=== PATIENT | female | born 1945 | race African-American/Black ===

== ENCOUNTER 2017-01-20 13:00 | Emergency (ER) | payer MEDICARE ==
[2017-01-20 14:00] VITALS: BP 139/81
--- NOTE | 2017-01-20 15:04 | UC ---
General HPI - HPI Summary HPI Summary: She has had intermittent leg swelling kobe in the past. Her pcp has prescribed her a diuretic which she takes on occassion. her last dose was Wednesday night. this time it did not work very well. She had labs drawn this last week that she believes were normal. She denies prior kidney, lung, heart or liver disease. She denies PND, orthopnea, cough, sob, chest pain, jaw pain, shoulder pain. - History of Current Complaint Chief Complaint: UCLowerExtremity Stated Complaint: SWOLLEN LEGS Time Seen by Provider: 01/20/17 14:49 Hx Obtained From: Patient Hx Last Menstrual Period: n/a Onset/Duration: Gradual Onset, Lasting Days Timing: Constant Onset Severity: Moderate Current Severity: Severe Character: she denies any pain. Associated Signs & Symptoms: Positive: Edema - Allergy/Home Medications Allergies/Adverse Reactions: Allergies Allergy/AdvReac Type Severity Reaction Status Date / Time No Known Allergies Allergy Verified 01/20/17 14:00 Home Medications: Home Medications Furosemide TAB* [Lasix TAB*] 40 mg PO DAILY 01/20/17 [History Confirmed 01/20/17 ] Meclizine TAB* [Antivert 12.5 TAB*] 12.5 mg PO TID 01/20/17 [History Confirmed 01/20/17] Nabumetone TAB* [Relafen TAB*] 500 mg PO BID 01/20/17 [History Confirmed ] PMH/Surg Hx/FS Hx/Imm Hx Previously Healthy: No - intermittent swelling. denies dm. - Surgical History Surgical History: None - Family History Known Family History: Positive: Other - no known swelling family history. - Social History Alcohol Use: Rare Substance Use Type: None Smoking Status (MU): Never Smoked Tobacco Review of Systems Respiratory: Negative Cardiovascular: Negative Musculoskeletal: Edema All Other Systems Reviewed And Are Negative: Yes Physical Exam Triage Information Reviewed: Yes Appearance: Well-Appearing, Obese Vital Signs: Initial Vital Signs Temp 98 F 01/20/17 13:55 Pulse 83 01/20/17 13:55 Resp 18 01/20/17 13:55 BP 139/81 01/20/17 13:55 Pulse Ox 98 01/20/17 13:55 Vital Signs Reviewed: Yes Eye Exam: Normal Eyes: Positive: Conjunctiva Clear ENT: Positive: Normal ENT inspection. Negative: Trismus Neck exam: Normal Neck: Positive: Supple, Nontender, No Lymphadenopathy Respiratory Exam: Normal Respiratory: Positive: Normal breath sounds, No respiratory distress, No accessory muscle use. Negative: Crackles Cardiovascular: Positive: RRR, Other: - no murmur or gallop. . Abdomen Description: Positive: Nontender, Soft Musculoskeletal: Positive: Edema @ - kobe edema mild pitting. not hot or red. non tender. Neurological: Positive: Alert, Muscle Tone Normal Psychological: Positive: Age Appropriate Behavior Skin Exam: Normal Skin: Negative: rashes Course/Dx - Course Course Of Treatment: she is a reliable pt with chronic intermittent swelling with regular f/u with pcp and labs last week. we discussed the worrisome etiologies that may be the culprit but clinically there is no evidence of heart , lung, liver, kidney involvement. She nonetheless agrees to f/u with pcp to evaluate these etiologies further. - Differential Dx - Multi-Symptom Provider Diagnoses: kobe leg edema. Discharge - Discharge Plan Condition: Good Disposition: HOME Patient Education Materials: Leg Edema (ED) Referrals: Ángel Tovar MD [Primary Care Provider] - 3 Days Additional Instructions: Please take the "water pill" for three days in a row. Also please start to use the compression stockings. Follow up with Dr Tovar to discuss make sure that this is not your heart, lungs, liver or kidneys that may be causing this swelling.
== END 2017-01-20 15:11 | disposition home or self-care (01) ==
LOC: UCCORT 13:00
DX: R60.0 Localized edema (principal)
CPT/HCPCS: 99202; G0463

== ENCOUNTER 2017-09-17 17:10 | Emergency (ER) | payer MEDICARE, OTHER ==
[2017-09-17 18:01] VITALS: BP 104/63
--- NOTE | 2017-09-17 19:30 | RAD ---
INDICATION: Left ankle pain after hearing a "pop" COMPARISON: None. TECHNIQUE: 3 views of the left ankle were obtained. FINDINGS: Involving the medial left lower leg greater than lateral, there is the appearance of subcutaneous induration. There is medial greater than lateral soft tissue thickening surrounding the ankle. There is enthesophyte formation at the origin of the plantar fascia and insertion point of the Achilles tendon on the calcaneal tubercle. The well corticated bones exhibit normal alignment. Joint spaces appear maintained. No fracture is seen. IMPRESSION: 1. RADIOGRAPHIC APPEARANCE IS CONSISTENT WITH SUBCUTANEOUS INDURATION AND THICKENING OR SEVERELY AFFECTING THE MEDIAL LEFT LOWER LEG AND ANKLE THAN LATERAL. PLEASE CORRELATE TO SUPERFICIAL VENOUS INSUFFICIENCY. 2. NO RADIOGRAPHICALLY APPARENT ACUTE FRACTURE OR DISLOCATION. If the patient's symptoms persist, follow-up imaging is recommended.
--- NOTE | 2017-09-17 19:46 | UC ---
Lower Extremity/Ankle HPI - HPI Summary HPI Summary: 72yo BF c/o left ankle pain and difficulty bearing weight after she heard it pop this afternoon, normally walks with a cane and can bear weight still, just hurts more to do so. - History of Current Complaint Chief Complaint: UCLowerExtremity Stated Complaint: LFT ANKLE COMPLAINT Time Seen by Provider: 09/17/17 18:12 Hx Obtained From: Patient, Family/Child Care Development Specialist Hx Last Menstrual Period: n/a Onset/Duration: Sudden Onset Severity Initially: Moderate Severity Currently: Moderate Pain Intensity: 8 Aggravating Factor(s): Standing, Ambulation Alleviating Factor(s): Rest - Allergies/Home Medications Allergies/Adverse Reactions: Allergies Allergy/AdvReac Type Severity Reaction Status Date / Time No Known Allergies Allergy Verified 01/20/17 14:00 PMH/Surg Hx/FS Hx/Imm Hx Previously Healthy: Yes - Surgical History Surgical History: None - Family History Known Family History: Positive: Other - no known swelling family history. - Social History Alcohol Use: Rare Substance Use Type: None Smoking Status (MU): Never Smoked Tobacco Review of Systems Constitutional: Negative Skin: Negative Eyes: Negative ENT: Negative Respiratory: Negative Cardiovascular: Negative Gastrointestinal: Negative Genitourinary: Negative Motor: Negative Neurovascular: Negative Musculoskeletal: Decreased ROM, Edema, Other: - left lateral ankle tenderness Neurological: Negative Psychological: Negative All Other Systems Reviewed And Are Negative: Yes Physical Exam Triage Information Reviewed: Yes Appearance: No Pain Distress Vital Signs: Initial Vital Signs Temp 36.3 C 09/17/17 17:56 Pulse 61 09/17/17 17:56 Resp 16 09/17/17 17:56 BP 104/63 09/17/17 17:56 Pulse Ox 99 09/17/17 17:56 Eye Exam: Normal ENT Exam: Normal Dental Exam: Normal Neck exam: Normal Neck: Positive: 1 Respiratory Exam: Normal Cardiovascular Exam: Normal Abdominal Exam: Normal Musculoskeletal: Positive: ROM Limited @, Edema @ - B/L pedal edema and chronic venous insufficiency, TTP on left lateral talfibular region w/o bony tenderness Neurological Exam: Normal Psychological Exam: Normal Skin Exam: Normal Lower Extremity Course/Dx - Course Course Of Treatment: XR of left ankle - no fx or dislocation, some soft tissue swelling - Differential Dx/Diagnosis Provider Diagnoses: left ankle sprain Discharge - Sign-Out/Discharge Documenting (check all that apply): Discharge/Admit/Transfer - Discharge Plan Condition: Stable Disposition: HOME Patient Education Materials: Ankle Sprain (ED) Referrals: Ángel Tovar MD [Primary Care Provider] - - Billing Disposition and Condition Condition: STABLE Disposition: Home
== END 2017-09-17 20:04 | disposition home or self-care (01) ==
LOC: UCCORT 17:10
DX: S93.402A Sprain of unspecified ligament of left ankle, initial encounter (principal); X58.XXXA Exposure to other specified factors, initial encounter; Y93.9 Activity, unspecified; Y92.9 Unspecified place or not applicable
CPT/HCPCS: 99212; G0463

== ENCOUNTER 2018-06-04 15:47 | Emergency (ER) | payer OTHER ==
[2018-06-04] MEDS ORDERED: Acetaminophen TAB* 325 MG PO ONE (16:06)
[2018-06-04 16:17] VITALS: BP 106/60
--- NOTE | 2018-06-04 16:25 | UC ---
Lower Extremity/Ankle HPI - HPI Summary HPI Summary: 72-year-old female presents with complaints of right ankle pain. States approximately 2:30 this afternoon she was walking when she felt a pop in the right ankle with a sudden sharp pain. States she has been unable to bear weight on that ankle due to the pain. Reports she had a similar episode in August 2017 involving her left ankle and was diagnosed with a sprain. She typically ambulates with a cane. Denies any numbness or tingling. - History of Current Complaint Chief Complaint: UCLowerExtremity Stated Complaint: RT ANKLE COMPLAINT Time Seen by Provider: 06/04/18 15:58 Hx Obtained From: Patient Hx Last Menstrual Period: n/a Pain Intensity: 9 - Allergies/Home Medications Allergies/Adverse Reactions: Allergies Allergy/AdvReac Type Severity Reaction Status Date / Time No Known Allergies Allergy Verified 06/04/18 16:06 Home Medications: Home Medications Bisoprolol TAB* [Zebeta TAB*] 5 mg PO DAILY 06/04/18 [History Confirmed 06/04/18 ] Rosuvastatin Calcium [Crestor] 10 mg PO DAILY 06/04/18 [History Confirmed ] PMH/Surg Hx/FS Hx/Imm Hx - Surgical History Surgical History: None - Family History Known Family History: Positive: Other - no known swelling family history. - Social History Alcohol Use: Rare Substance Use Type: None Smoking Status (MU): Never Smoked Tobacco Review of Systems All Other Systems Reviewed And Are Negative: Yes Constitutional: Negative: Fever, Chills Skin: Negative: Bruising Respiratory: Positive: Negative Cardiovascular: Positive: Negative Gastrointestinal: Positive: Negative Genitourinary: Positive: Negative Motor: Negative: Weakness Neurovascular: Negative: Decreased Sensation Musculoskeletal: Positive: Other: - See HPI Neurological: Positive: Negative Is Patient Immunocompromised?: No Physical Exam - Summary Physical Exam Summary: GENERAL APPEARANCE: Chronically ill-appearing, obese, alert and cooperative, and appears to be in no acute distress. CARDIAC: Normal S1 and S2. No S3, S4 or murmurs. Rhythm is regular. There is no peripheral edema, cyanosis or pallor. Extremities are warm and well perfused. Capillary refill is less than 2 seconds. Peripheral pulses intact. LUNGS: Clear to auscultation without rales, rhonchi, wheezing or diminished breath sounds. ABDOMEN: Positive bowel sounds. Soft, nondistended, nontender. No guarding or rebound. No masses or hepatosplenomegally. MUSKULOSKELETAL: Normal muscular development. EXTREMITIES: Tenderness to right lateral ankle and forefoot without erythema, bruising, or swelling. No gross deformity or joint abnormality. Circulation and sensation intact distally. Triage Information Reviewed: Yes Vital Signs: Initial Vital Signs Temp 97.3 F 06/04/18 16:08 Pulse 73 06/04/18 16:08 Resp 18 06/04/18 16:08 BP 106/60 06/04/18 16:08 Pulse Ox 99 06/04/18 16:08 Vital Signs Reviewed: Yes Diagnostics - Radiology No standard instances Radiology Interpretation Completed By: Radiologist Summary of Radiographic Findings: Patient Name: MELINDA EDMONDS Medical Record# : [id number]. Ordering Physician: Galo Blanchard NP Acct.#: [id number]. : 1945 Age: 72 Sex: F Location: [facility]. Exam Date: 12/15 160 ADM Status: REG ER. Order Information: ANKLE RIGHT 3+VWS. Accession Number: [id number]. CPT: 78593. Indication: RIGHT ankle pain. [place] pop. Decreased range of motion. Comparison: No relevant prior exams available on the [facility] [place] PACS for comparison. Technique: AP, mortise, and lateral views RIGHT ankle. Report: Negative for fracture, osteochondral lesion, or articular malalignment. Moderate. plantar fascia origin bone spur. Moderately severe nonfocal soft tissue swelling. Dystrophic calcifications at the posterior medial soft tissues. IMPRESSION: #. Negative for fracture or malalignment. Moderate plantar fascia origin heel spur. #. Nonspecific soft tissue swelling. Lower Extremity Course/Dx - Course Course Of Treatment: 72-year-old female presents with complaints of right ankle pain. States approximately 2:30 this afternoon she was walking when she felt a pop in the right ankle with a sudden sharp pain. States she has been unable to bear weight on that ankle due to the pain. Reports she had a similar episode in August 2017 involving her left ankle and was diagnosed with a sprain. She typically ambulates with a cane. Denies any numbness or tingling. Afebrile. Vital signs stable. Exam reveals an adult -[place] female who appears older than stated age in no acute distress with mild tenderness over the right lateral ankle and forefoot without ecchymosis, erythema, or gross deformity. Sensation and circulation were intact distally. X-ray showed no acute fracture or dislocation. With patient's baseline mobility issues she was placed in a CAM boot for support to allow weight bearing as tolerated. Also recommending OTC analgesics and RICE. She is to follow up with her PCP in 5 days for recheck of symptoms. Anticipatory guidance and warning symptoms reveiewed with patient. Verbalizes understanding and agrees with POC. - Differential Dx/Diagnosis Differential Diagnosis/HQI/PQRI: Arthritis, Dislocation, Fracture (Closed), Sprain Provider Diagnosis: Right ankle sprain Discharge - Sign-Out/Discharge Documenting (check all that apply): Patient Departure All imaging exams completed and their final reports reviewed: Yes - Discharge Plan Condition: Stable Disposition: HOME Patient Education Materials: Ankle Sprain (ED) Referrals: Ángel Tovar MD [Primary Care Provider] - 5 Days (For recheck of symptoms.) Additional Instructions: The x-ray performed in the clinic today showed no evidence of a fracture. I suspect that you have a sprained ankle. Wear the CAM boot that was applied in the clinic for comfort and support. You may remove to shower and sleep but wear at all other times until pain-free. Rest the ankle as much as possible. You may walk and bear weight as tolerated. Apply ice to the affected area for 15-20 minutes at least 4 times a day for next few days to help with pain and swelling. Keep the foot elevated when sitting to reduce swelling. Take acetaminophen (Tylenol) according to directions as needed for pain. Follow up with your primary care provider in 5 days for recheck of symptoms. Seek immediate medical attention in the emergency room if you have severe pain not managed with pain medication, you are unable to walk or bear weight, you develop numbness or tingling in the foot, or any worsening of symptoms. - Billing Disposition and Condition Condition: STABLE Disposition: Home
== END 2018-06-04 17:32 | disposition home or self-care (01) ==
LOC: UCCORT 15:47
DX: S93.401A Sprain of unspecified ligament of right ankle, initial encounter (principal); X58.XXXA Exposure to other specified factors, initial encounter; Y92.9 Unspecified place or not applicable
CPT/HCPCS: 99213; A9270-GY; G0463